=== PATIENT | male | born 1950 | race Caucasian/White ===

== ENCOUNTER 2017-04-26 17:17 | Emergency (ER) | payer MEDICARE ==
[~2017-04-26] VITALS: Ht 188 cm; Wt 136.0 kg
[2017-04-26 18:07] LABS: URINE BILIRUBIN - DIPSTICK NEGATIVE (NEGATIVE); URINE BLOOD DIPSTICK NEGATIVE (NEGATIVE); URINE CLARITY CLEAR; URINE COLOR YELLOW; URINE GLUCOSE - DIPSTICK NEGATIVE (NEGATIVE); URINE KETONE NEGATIVE (NEGATIVE); URINE LEUK ESTERASE NEGATIVE (NEGATIVE); URINE NITRITE - DIPSTICK NEGATIVE (Negative); URINE PROTEIN - DIPSTICK TRACE mg/dL (NEG-TRACE); URINE UROBILINOGEN - DIPSTICK 0.2 E.U./dL (0.2)
[2017-04-26 18:08] LABS: HEMATOCRIT 48.9 % (39.0-50.0); HEMOGLOBIN 16.6 g/dl (14.0-18.0); IMMATURE GRANULOCYTES 0.6 % (0.0-1.0); MEAN CORPUSCULAR HGB 31.9 pG CALC (26.0-32.0); MEAN CORPUSCULAR HGB CONC 33.9 g/L CALC (32.0-36.0); NEUT# 6.12 thou/uL (1.82-7.42); RED BLOOD COUNT 5.2 mill/uL (4.70-6.10); RED CELL DISTRI WIDTH 13.5 % (11.5-15.5)
[2017-04-26] MEDS ORDERED: LISINOP/HCTZ1 TA1 PO (18:13)
[2017-04-26] MEDS ORDERED: VERAPAMIL120 M1 PO (18:14)
[2017-04-26] MEDS ORDERED: HYDRALAZINE25 MG PO (18:14)
[2017-04-26] MEDS ORDERED: ZYLOPRIM300 MG PO (18:15)
[2017-04-26] MEDS ORDERED: TERAZOSIN1 MG PO (18:15)
[2017-04-26] MEDS ORDERED: FINASTERIDE5 MG PO (18:15)
[2017-04-26] MEDS ORDERED: PENTOXIFYLLI400 M1 PO (18:16)
[2017-04-26] MEDS ORDERED: FLAX SEED OIL1300 MG PO (18:17)
[2017-04-26] MEDS ORDERED: BAYER ASPIRIN325 MG PO (18:18)
[2017-04-26] MEDS ORDERED: VITAMIN D3400 UNI2 PO (18:19)
[2017-04-26] MEDS ORDERED: MAGNESIUM300 MG PO (18:19)
[2017-04-26] MEDS ORDERED: MULTI 50+ PO (18:19)
[2017-04-26 18:20] LABS: ALKALINE PHOSPHATASE 75 u/l (38-126); AMYLASE < 30 u/l (30-110); ANION GAP 14 (6-22 (CALC)); BILIRUBIN, TOTAL 0.7 mg/dL (0.0-1.4); BUN 24 mg/dL (8-23); BUN/CREATININE RATIO 19 (12-20 (CALC)); CALCIUM 9.2 mg/dL (8.4-10.2); CARBON DIOXIDE 28 mmol/l (22-30); CHLORIDE 100 mmol/l (95-108); CREATININE 1.3 mg/dL (0.7-1.3); GFR 55 ML/MIN (>=60 (CALC)); GFR FOR AFR.AMER. > 60 ML/MIN (>=60 (CALC)); GLUCOSE 96 mg/dL (82-115); LIPASE 37 u/l (23-300); POTASSIUM 3.9 mmol/l (3.5-5.1); SGOT/AST 20 u/l (19-48); SGPT/ALT 28 u/l (11-66); SODIUM 138 mmol/l (137-146); TOTAL PROTEIN 6.6 g/dL (6.3-8.2)
[2017-04-26] MEDS ORDERED: VITAMIN E400 UNI2 PO (18:20)
[2017-04-26] MEDS ORDERED: STOOL SOFTE1 PO (18:21)
[2017-04-26] MEDS ORDERED: CITRATE OF MEGNESIA (18:22)
[2017-04-26] MEDS ORDERED: B COMPLE2 PO (18:22)
[2017-04-26 18:32] LABS: MYOGLOBIN 61 ng/mL (0 - 121)
[2017-04-26] MEDS ORDERED: LORTAB 10-325 M1 TAB PO (19:53)
[2017-04-26] MEDS ORDERED: ZOFRAN ODT4 MG PO (19:53)
[2017-04-26 20:12] VITALS: BP 131/68
== END 2017-04-26 20:13 | disposition home or self-care (01) ==
LOC: ED 17:17
PROVIDERS: Emergency Medicine
DX: R10.32 Left lower quadrant pain (principal); K57.30 Diverticulosis of large intestine without perforation or abscess without bleeding; K80.20 Calculus of gallbladder without cholecystitis without obstruction; I48.91 Unspecified atrial fibrillation; Z79.82 Long term (current) use of aspirin; I10 Essential (primary) hypertension; N40.0 Benign prostatic hyperplasia without lower urinary tract symptoms; R11.0 Nausea; R14.0 Abdominal distension (gaseous)
CPT/HCPCS: Q9967

== ENCOUNTER 2017-06-12 19:32 | Emergency (ER) | payer MEDICARE ==
[~2017-06-12] VITALS: Ht 188 cm; Wt 136.4 kg
[~2017-06-12 19:32] MED LIST: B COMPLE2 PO; BAYER ASPIRIN325 MG PO; CITRATE OF MEGNESIA; FINASTERIDE5 MG PO; FLAX SEED OIL1300 MG PO; HYDRALAZINE25 MG PO; LISINOP/HCTZ1 TA1 PO; LORTAB 10-325 M1 TAB PO; MAGNESIUM300 MG PO; MULTI 50+ PO; PENTOXIFYLLI400 M1 PO; STOOL SOFTE1 PO; TERAZOSIN1 MG PO; VERAPAMIL120 M1 PO; VITAMIN D3400 UNI2 PO; VITAMIN E400 UNI2 PO; ZOFRAN ODT4 MG PO; ZYLOPRIM300 MG PO
[2017-06-12 21:07] LABS: HEMATOCRIT 50.5 % (39.0-50.0); HEMOGLOBIN 17.3 g/dl (14.0-18.0); IMMATURE GRANULOCYTES 0.5 % (0.0-1.0); MEAN CELL VOLUME 92.3 fL CALC (80.0-100.0); MEAN CORPUSCULAR HGB 31.6 pG CALC (26.0-32.0); MEAN CORPUSCULAR HGB CONC 34.3 g/L CALC (32.0-36.0); NEUT# 5.82 thou/uL (1.82-7.42); RED BLOOD COUNT 5.47 mill/uL (4.70-6.10); RED CELL DISTRI WIDTH 13.2 % (11.5-15.5)
[2017-06-12 21:14] LABS: ALBUMIN 4.3 g/dL (3.2-5.0); ALKALINE PHOSPHATASE 88 u/l (38-126); ANION GAP 15 (6-22 (CALC)); BILIRUBIN, TOTAL 1.1 mg/dL (0.0-1.4); BUN 26 mg/dL (8-23); BUN/CREATININE RATIO 18 (12-20 (CALC)); CALCIUM 9.1 mg/dL (8.4-10.2); CARBON DIOXIDE 28 mmol/l (22-30); CHLORIDE 100 mmol/l (95-108); CREATININE 1.4 mg/dL (0.7-1.3); GFR 50 ML/MIN (>=60 (CALC)); GFR FOR AFR.AMER. > 60 ML/MIN (>=60 (CALC)); GLUCOSE 92 mg/dL (82-115); POTASSIUM 4.1 mmol/l (3.5-5.1); SGOT/AST 44 u/l (19-48); SGPT/ALT 28 u/l (11-66); SODIUM 140 mmol/l (137-146); TOTAL PROTEIN 7.7 g/dL (6.3-8.2)
[2017-06-12 21:18] LABS: ACT PARTIAL THROMBO TIME 27.8 SECONDS (20.0-32.5); PROTHROMBIN TIME 11.2 SECONDS (9.0-12.5)
[2017-06-12 21:26] LABS: MYOGLOBIN 151 ng/mL (0 - 121)
[2017-06-12 22:38] LABS: URINE BILIRUBIN - DIPSTICK NEGATIVE (NEGATIVE); URINE BLOOD DIPSTICK NEGATIVE (NEGATIVE); URINE CLARITY CLEAR; URINE COLOR YELLOW; URINE GLUCOSE - DIPSTICK NEGATIVE (NEGATIVE); URINE KETONE TRACE mg/dL (NEGATIVE); URINE LEUK ESTERASE NEGATIVE (NEGATIVE); URINE NITRITE - DIPSTICK NEGATIVE (Negative); URINE PH 5.5 (4.5-8.0); URINE PROTEIN - DIPSTICK NEGATIVE (NEG-TRACE); URINE UROBILINOGEN - DIPSTICK 0.2 E.U./dL (0.2)
[2017-06-13 00:40] VITALS: BP 155/96
== END 2017-06-13 01:03 | disposition home or self-care (01) ==
LOC: ED 19:32
PROVIDERS: Emergency Medicine
DX: R42 Dizziness and giddiness (principal); I10 Essential (primary) hypertension; M10.9 Gout, unspecified; N40.0 Benign prostatic hyperplasia without lower urinary tract symptoms; R94.31 Abnormal electrocardiogram [ECG] [EKG]; Z59.1 Inadequate housing

== ENCOUNTER 2017-06-13 13:39 | Emergency (ER) | payer MEDICARE ==
[~2017-06-13] VITALS: Ht 188 cm; Wt 150.0 kg
[2017-06-13 15:20] LABS: HEMATOCRIT 48.9 % (39.0-50.0); HEMOGLOBIN 16.7 g/dl (14.0-18.0); IMMATURE GRANULOCYTES 0.4 % (0.0-1.0); MEAN CELL VOLUME 92.3 fL CALC (80.0-100.0); MEAN CORPUSCULAR HGB 31.5 pG CALC (26.0-32.0); MEAN CORPUSCULAR HGB CONC 34.2 g/L CALC (32.0-36.0); NEUT# 7.31 thou/uL (1.82-7.42); RED BLOOD COUNT 5.3 mill/uL (4.70-6.10); RED CELL DISTRI WIDTH 13.3 % (11.5-15.5)
[2017-06-13 15:35] VITALS: BP 153/85
[2017-06-13 15:37] LABS: ALKALINE PHOSPHATASE 74 u/l (38-126); ANION GAP 14 (6-22 (CALC)); BILIRUBIN, TOTAL 0.9 mg/dL (0.0-1.4); BUN 26 mg/dL (8-23); BUN/CREATININE RATIO 18 (12-20 (CALC)); CARBON DIOXIDE 27 mmol/l (22-30); CHLORIDE 103 mmol/l (95-108); CREATININE 1.4 mg/dL (0.7-1.3); GFR 50 ML/MIN (>=60 (CALC)); GFR FOR AFR.AMER. > 60 ML/MIN (>=60 (CALC)); GLUCOSE 84 mg/dL (82-115); POTASSIUM 3.6 mmol/l (3.5-5.1); SGOT/AST 32 u/l (19-48); SGPT/ALT 33 u/l (11-66); SODIUM 141 mmol/l (137-146)
[2017-06-13 15:46] LABS: MYOGLOBIN 331 ng/mL (0 - 121)
== END 2017-06-13 17:48 | disposition home or self-care (01) ==
LOC: ED 13:39
PROVIDERS: Emergency Medicine
DX: R53.1 Weakness (principal); I48.91 Unspecified atrial fibrillation; R42 Dizziness and giddiness; I10 Essential (primary) hypertension; M79.1 Myalgia

== ENCOUNTER 2018-11-22 14:16 | Emergency (ER) | payer MEDICARE ==
[~2018-11-22] VITALS: Ht 188 cm; Wt 142.0 kg
[~2018-11-22 14:16] MED LIST changes: -CELEBREX200 MG PO
[2018-11-22] MEDS ORDERED: CELEBREX200 MG PO ×2 (15:57→16:12)
[2018-11-22 16:34] VITALS: BP 87/59
== END 2018-11-22 16:35 | disposition home or self-care (01) ==
LOC: ED 14:16
DX: S83.91XA Sprain of unspecified site of right knee, initial encounter (principal); M17.11 Unilateral primary osteoarthritis, right knee; I69.354 Hemiplegia and hemiparesis following cerebral infarction affecting left non-dominant side; I10 Essential (primary) hypertension; X50.0XXA Overexertion from strenuous movement or load, initial encounter; Y93.89 Activity, other specified; Y92.003 Bedroom of unspecified non-institutional (private) residence as the place of occurrence of the external cause; R53.83 Other fatigue; R26.89 Other abnormalities of gait and mobility; M54.16 Radiculopathy, lumbar region; Z91.81 History of falling

== ENCOUNTER → 2018-11-22 | Outpatient (REF) | payer MEDICARE ==
[~2018-11-22] MED LIST changes: +CELEBREX200 MG PO
[2018-11-22 14:45] LABS: HEMATOCRIT 48.1 % (39.0-50.0); HEMOGLOBIN 15.7 g/dl (14.0-18.0); IMMATURE GRANULOCYTES 0.5 % (0.0-5.0); MEAN CELL VOLUME 95.8 fL CALC (80.0-100.0); MEAN CORPUSCULAR HGB 31.3 pG CALC (26.0-32.0); MEAN CORPUSCULAR HGB CONC 32.6 g/L CALC (32.0-36.0); NEUT# 3.8 thou/uL (1.82-7.42); RED BLOOD COUNT 5.02 mill/uL (4.70-6.10); RED CELL DISTRI WIDTH 14.6 % (11.5-15.5)
[2018-11-22 15:08] LABS: ALBUMIN 3.5 g/dL (3.2-5.0); BILIRUBIN, TOTAL 0.9 mg/dL (0.0-1.4); CREATININE 2.2 mg/dL (0.7-1.3)
[2018-11-22 15:38] LABS: TSH, 3RD GENERATION 2.12 uIU/mL (0.47 - 4.68)
== END | disposition home or self-care (01) ==
LOC: LAB 13:57
PROVIDERS: ATTEND Family Medicine
DX: R53.83 Other fatigue (principal); R26.89 Other abnormalities of gait and mobility; M54.16 Radiculopathy, lumbar region; Z91.81 History of falling

== ENCOUNTER 2019-01-05 20:11 | Observation (INO) | payer MEDICARE ==
[~2019-01-05] VITALS: Ht 190.5 cm; Wt 120.9 kg
[~2019-01-05 20:11] MED LIST changes: +CELEBREX200 MG PO
[2019-01-05 20:43] LABS: HEMOGLOBIN 14.9 g/dl (14.0-18.0); IMMATURE GRANULOCYTES 0.6 % (0.0-5.0); MEAN CELL VOLUME 98.1 fL CALC (80.0-100.0); MEAN CORPUSCULAR HGB 31.1 pG CALC (26.0-32.0); MEAN CORPUSCULAR HGB CONC 31.7 g/L CALC (32.0-36.0); NEUT# 4.54 thou/uL (1.82-7.42); RED BLOOD COUNT 4.79 mill/uL (4.70-6.10); RED CELL DISTRI WIDTH 14.6 % (11.5-15.5)
[2019-01-05] MEDS ORDERED: ELIQUIS5 MG PO (20:55)
[2019-01-05] MEDS ORDERED: TAMSULOSIN0.4 MG PO (20:56)
[2019-01-05] MEDS ORDERED: HYDROCHLOROT25 MG PO (20:58)
[2019-01-05] MEDS ORDERED: ATROVENT H17 MCG/ACT IN (20:59)
[2019-01-05 21:04] LABS: ALBUMIN 3.8 g/dL (3.2-5.0); ALKALINE PHOSPHATASE 86 u/l (38-126); ANION GAP 15 (6-22 (CALC)); BILIRUBIN, TOTAL 0.6 mg/dL (0.0-1.4); BUN 50 mg/dL (8-23); BUN/CREATININE RATIO 20 (12-20 (CALC)); CARBON DIOXIDE 27 mmol/l (22-30); CHLORIDE 103 mmol/l (95-108); CREATININE 2.5 mg/dL (0.7-1.3); GFR 26 ML/MIN (>=60 (CALC)); GFR FOR AFR.AMER. 31 ML/MIN (>=60 (CALC)); POTASSIUM 4.3 mmol/l (3.5-5.1); SGOT/AST 18 u/l (19-48); SODIUM 141 mmol/l (137-146); TOTAL PROTEIN 6.3 g/dL (6.3-8.2)
[2019-01-05 21:06] LABS: ACT PARTIAL THROMBO TIME 32.8 SECONDS (20.0-32.5); PROTHROMBIN TIME 10.4 SECONDS (9.0-12.5)
[2019-01-05 21:16] LABS: MYOGLOBIN 108 ng/mL (0 - 121)
[2019-01-05 23:04] LABS: URINE BILIRUBIN - DIPSTICK NEGATIVE (NEGATIVE); URINE BLOOD DIPSTICK NEGATIVE (NEGATIVE); URINE COLOR YELLOW; URINE GLUCOSE - DIPSTICK NEGATIVE (NEGATIVE); URINE KETONE NEGATIVE (NEGATIVE); URINE LEUK ESTERASE NEGATIVE (NEGATIVE); URINE NITRITE - DIPSTICK NEGATIVE (Negative); URINE PH 5.5 (4.5-8.0); URINE PROTEIN - DIPSTICK TRACE mg/dL (NEG-TRACE); URINE SPECIFIC GRAVITY 1.025
[2019-01-06 00:48] VITALS: BP 156/94
[2019-01-06 04:48] VITALS: BP 163/97
[2019-01-06 06:17] LABS: ALBUMIN 3.4 g/dL (3.2-5.0); BILIRUBIN, TOTAL 0.6 mg/dL (0.0-1.4); CREATININE 2.2 mg/dL (0.7-1.3); POTASSIUM 4.5 mmol/l (3.5-5.1); TOTAL PROTEIN 5.7 g/dL (6.3-8.2)
[2019-01-06 09:38] VITALS: BP 134/74
[2019-01-06 10:50] VITALS: BP 178/88
[2019-01-06] MEDS ORDERED: LOPRESSOR50 M2 PO (14:25)
[2019-01-06] MEDS ORDERED: CARDIZEM CD120 MG PO (14:25)
== END 2019-01-06 16:05 | disposition home health service (06) ==
LOC: ED 20:11 → ED-I 23:22 → ED 23:37 → MS2 23:37
PROVIDERS: Emergency Medicine; ADMIT Internal Medicine Nephrology; ATTEND Internal Medicine Nephrology
DX: G45.9 Transient cerebral ischemic attack, unspecified (principal); N17.9 Acute kidney failure, unspecified; I69.954 Hemiplegia and hemiparesis following unspecified cerebrovascular disease affecting left non-dominant side; I69.993 Ataxia following unspecified cerebrovascular disease; I12.9 Hypertensive chronic kidney disease with stage 1 through stage 4 chronic kidney disease, or unspecified chronic kidney disease; N18.3 Chronic kidney disease, stage 3 (moderate); I48.2 Chronic atrial fibrillation; G62.1 Alcoholic polyneuropathy; M10.9 Gout, unspecified; I73.9 Peripheral vascular disease, unspecified; F17.210 Nicotine dependence, cigarettes, uncomplicated; Z79.01 Long term (current) use of anticoagulants

== ENCOUNTER 2019-01-19 17:00 | Inpatient (IN) | payer MEDICARE ==
[~2019-01-19] VITALS: Ht 190.5 cm; Wt 124.0 kg
[~2019-01-19 17:00] MED LIST changes: +ATROVENT H17 MCG/ACT IN; +CARDIZEM CD120 MG PO; +ELIQUIS5 MG PO; +HYDROCHLOROT25 MG PO; +LOPRESSOR50 M2 PO; +TAMSULOSIN0.4 MG PO
[2019-01-19 18:01] LABS: HEMATOCRIT 42.5 % (39.0-50.0); HEMOGLOBIN 13.8 g/dl (14.0-18.0); IMMATURE GRANULOCYTES 0.7 % (0.0-5.0); MEAN CELL VOLUME 97.5 fL CALC (80.0-100.0); MEAN CORPUSCULAR HGB 31.7 pG CALC (26.0-32.0); MEAN CORPUSCULAR HGB CONC 32.5 g/L CALC (32.0-36.0); NEUT# 3.6 thou/uL (1.82-7.42); RED BLOOD COUNT 4.36 mill/uL (4.70-6.10); RED CELL DISTRI WIDTH 14.6 % (11.5-15.5)
[2019-01-19 18:24] LABS: ALBUMIN 3.1 g/dL (3.2-5.0); ALKALINE PHOSPHATASE 70 u/l (38-126); ANION GAP 11 (6-22 (CALC)); BILIRUBIN, TOTAL 0.5 mg/dL (0.0-1.4); BUN 25 mg/dL (8-23); BUN/CREATININE RATIO 17 (12-20 (CALC)); CARBON DIOXIDE 25 mmol/l (22-30); CHLORIDE 107 mmol/l (95-108); CREATININE 1.5 mg/dL (0.7-1.3); GFR 46 ML/MIN (>=60 (CALC)); GFR FOR AFR.AMER. 56 ML/MIN (>=60 (CALC)); SGOT/AST 13 u/l (19-48); SODIUM 138 mmol/l (137-146); TOTAL PROTEIN 5.4 g/dL (6.3-8.2)
[2019-01-19 20:18] VITALS: BP 137/85
[2019-01-19] MEDS ORDERED: BACLOFEN10 MG PO (20:28)
[2019-01-19] MEDS ORDERED: TOPAMAX25 MG PO (20:28)
[2019-01-19] MEDS ORDERED: PERCOCET1 TA4 PO (20:29)
[2019-01-19] MEDS ORDERED: CYMBALTA60 MG PO (20:29)
[2019-01-19] MEDS ORDERED: ALLOPURINOL300 MG PO (20:39)
[2019-01-19 22:15] VITALS: BP 125/69
[2019-01-20] VITALS (14 sets, daily range): BP systolic 125–164; BP diastolic 65–88
[2019-01-20 01:39] LABS: URINE BILIRUBIN - DIPSTICK NEGATIVE (NEGATIVE); URINE BLOOD DIPSTICK NEGATIVE (NEGATIVE); URINE COLOR YELLOW; URINE GLUCOSE - DIPSTICK NEGATIVE (NEGATIVE); URINE KETONE NEGATIVE (NEGATIVE); URINE LEUK ESTERASE NEGATIVE (NEGATIVE); URINE NITRITE - DIPSTICK NEGATIVE (Negative); URINE PH 5.5 (4.5-8.0); URINE PROTEIN - DIPSTICK NEGATIVE (NEG-TRACE); URINE SPECIFIC GRAVITY 1.025; URINE UROBILINOGEN - DIPSTICK 0.2 E.U./dL (0.2)
[2019-01-20 01:52] LABS: BARBITURATES NEGATIVE (NEGATIVE); COCAINE NEGATIVE (NEGATIVE); METHADONE NEGATIVE (NEGATIVE); OXCYCODONE POSITIVE (NEGATIVE); TETRAHYDROCANNABIONOL NEGATIVE (NEGATIVE); TRICYLIC ANTIDEPRESSANTS POSITIVE (NEGATIVE)
[2019-01-20 06:14] LABS: HEMATOCRIT 45.7 % (39.0-50.0); HEMOGLOBIN 14.8 g/dl (14.0-18.0); MEAN CELL VOLUME 98.3 fL CALC (80.0-100.0); MEAN CORPUSCULAR HGB 31.8 pG CALC (26.0-32.0); MEAN CORPUSCULAR HGB CONC 32.4 g/L CALC (32.0-36.0); RED BLOOD COUNT 4.65 mill/uL (4.70-6.10); RED CELL DISTRI WIDTH 14.6 % (11.5-15.5)
[2019-01-20 06:35] LABS: CHOLESTEROL HDL RATIO 5.6 (<4.4 (CALC)); CREATININE 1.5 mg/dL (0.7-1.3); MAGNESIUM 2.2 mg/dL (1.6-2.3); POTASSIUM 4.2 mmol/l (3.5-5.1)
[2019-01-21] VITALS (15 sets, daily range): BP systolic 138–198; BP diastolic 63–108
[2019-01-22] VITALS (13 sets, daily range): BP systolic 145–194; BP diastolic 76–102
[2019-01-22 05:24] LABS: HEMATOCRIT 45.3 % (39.0-50.0); HEMOGLOBIN 14.8 g/dl (14.0-18.0); IMMATURE GRANULOCYTES 0.5 % (0.0-5.0); MEAN CELL VOLUME 96.8 fL CALC (80.0-100.0); MEAN CORPUSCULAR HGB 31.6 pG CALC (26.0-32.0); MEAN CORPUSCULAR HGB CONC 32.7 g/L CALC (32.0-36.0); NEUT# 4.34 thou/uL (1.82-7.42); RED BLOOD COUNT 4.68 mill/uL (4.70-6.10); RED CELL DISTRI WIDTH 14.6 % (11.5-15.5)
[2019-01-22 05:43] LABS: ALBUMIN 3.2 g/dL (3.2-5.0); ALKALINE PHOSPHATASE 76 u/l (38-126); ANION GAP 11 (6-22 (CALC)); BILIRUBIN, TOTAL 0.4 mg/dL (0.0-1.4); BUN 21 mg/dL (8-23); BUN/CREATININE RATIO 17 (12-20 (CALC)); CARBON DIOXIDE 26 mmol/l (22-30); CHLORIDE 107 mmol/l (95-108); CREATININE 1.2 mg/dL (0.7-1.3); GFR 60 ML/MIN (>=60 (CALC)); GFR FOR AFR.AMER. > 60 ML/MIN (>=60 (CALC)); LIPASE 40 u/l (23-300); POTASSIUM 4.2 mmol/l (3.5-5.1); SGOT/AST 12 u/l (19-48); SODIUM 139 mmol/l (137-146); TOTAL PROTEIN 5.5 g/dL (6.3-8.2)
[2019-01-22 05:53] LABS: AMYLASE < 30 u/l (30-110)
[2019-01-23] VITALS (9 sets, daily range): BP systolic 150–196; BP diastolic 68–104
[2019-01-23 05:27] LABS: HEMATOCRIT 47.9 % (39.0-50.0); HEMOGLOBIN 15.7 g/dl (14.0-18.0); IMMATURE GRANULOCYTES 0.4 % (0.0-5.0); MEAN CELL VOLUME 96.6 fL CALC (80.0-100.0); MEAN CORPUSCULAR HGB 31.7 pG CALC (26.0-32.0); MEAN CORPUSCULAR HGB CONC 32.8 g/L CALC (32.0-36.0); NEUT# 5.01 thou/uL (1.82-7.42); RED BLOOD COUNT 4.96 mill/uL (4.70-6.10); RED CELL DISTRI WIDTH 14.5 % (11.5-15.5)
[2019-01-23 05:39] LABS: ALBUMIN 3.5 g/dL (3.2-5.0); ALKALINE PHOSPHATASE 90 u/l (38-126); ANION GAP 13 (6-22 (CALC)); BILIRUBIN, TOTAL 0.7 mg/dL (0.0-1.4); BUN 19 mg/dL (8-23); BUN/CREATININE RATIO 18 (12-20 (CALC)); CARBON DIOXIDE 25 mmol/l (22-30); CHLORIDE 104 mmol/l (95-108); CREATININE 1.1 mg/dL (0.7-1.3); GFR > 60 ML/MIN (>=60 (CALC)); GFR FOR AFR.AMER. > 60 ML/MIN (>=60 (CALC)); MAGNESIUM 2.1 mg/dL (1.6-2.3); POTASSIUM 4.3 mmol/l (3.5-5.1); SGOT/AST 17 u/l (19-48); SODIUM 138 mmol/l (137-146)
[2019-01-24] VITALS (7 sets, daily range): BP systolic 98–155; BP diastolic 60–91
[2019-01-24 05:49] LABS: HEMOGLOBIN 14.9 g/dl (14.0-18.0); IMMATURE GRANULOCYTES 0.5 % (0.0-5.0); MEAN CELL VOLUME 97.5 fL CALC (80.0-100.0); MEAN CORPUSCULAR HGB 31.6 pG CALC (26.0-32.0); MEAN CORPUSCULAR HGB CONC 32.4 g/L CALC (32.0-36.0); NEUT# 4.94 thou/uL (1.82-7.42); RED BLOOD COUNT 4.72 mill/uL (4.70-6.10); RED CELL DISTRI WIDTH 14.5 % (11.5-15.5)
[2019-01-24 06:03] LABS: ALBUMIN 3.2 g/dL (3.2-5.0); ALKALINE PHOSPHATASE 71 u/l (38-126); ANION GAP 12 (6-22 (CALC)); BILIRUBIN, TOTAL 0.6 mg/dL (0.0-1.4); BUN 22 mg/dL (8-23); BUN/CREATININE RATIO 20 (12-20 (CALC)); CARBON DIOXIDE 26 mmol/l (22-30); CHLORIDE 104 mmol/l (95-108); CREATININE 1.1 mg/dL (0.7-1.3); GFR > 60 ML/MIN (>=60 (CALC)); GFR FOR AFR.AMER. > 60 ML/MIN (>=60 (CALC)); MAGNESIUM 2.2 mg/dL (1.6-2.3); POTASSIUM 4.3 mmol/l (3.5-5.1); SGOT/AST 15 u/l (19-48); SODIUM 138 mmol/l (137-146); TOTAL PROTEIN 5.5 g/dL (6.3-8.2)
[2019-01-25 04:32] VITALS: BP 187/99
[2019-01-25 05:13] VITALS: BP 119/81
[2019-01-25 09:46] VITALS: BP 161/86
[2019-01-25 11:38] VITALS: BP 160/94
[2019-01-25 16:03] VITALS: BP 93/84
[2019-01-25 20:11] VITALS: BP 173/89
[2019-01-26] VITALS (8 sets, daily range): BP systolic 131–170; BP diastolic 65–79
[2019-01-26 06:03] LABS: HEMATOCRIT 42.9 % (39.0-50.0); HEMOGLOBIN 14.2 g/dl (14.0-18.0); IMMATURE GRANULOCYTES 0.5 % (0.0-5.0); MEAN CELL VOLUME 96.4 fL CALC (80.0-100.0); MEAN CORPUSCULAR HGB 31.9 pG CALC (26.0-32.0); MEAN CORPUSCULAR HGB CONC 33.1 g/L CALC (32.0-36.0); NEUT# 5.73 thou/uL (1.82-7.42); RED BLOOD COUNT 4.45 mill/uL (4.70-6.10); RED CELL DISTRI WIDTH 14.4 % (11.5-15.5)
[2019-01-26 06:36] LABS: ALKALINE PHOSPHATASE 75 u/l (38-126); ANION GAP 11 (6-22 (CALC)); BILIRUBIN, TOTAL 0.5 mg/dL (0.0-1.4); BUN 19 mg/dL (8-23); BUN/CREATININE RATIO 17 (12-20 (CALC)); CARBON DIOXIDE 27 mmol/l (22-30); CHLORIDE 106 mmol/l (95-108); CREATININE 1.1 mg/dL (0.7-1.3); GFR > 60 ML/MIN (>=60 (CALC)); GFR FOR AFR.AMER. > 60 ML/MIN (>=60 (CALC)); MAGNESIUM 2.3 mg/dL (1.6-2.3); POTASSIUM 3.9 mmol/l (3.5-5.1); SGOT/AST 13 u/l (19-48); SODIUM 139 mmol/l (137-146); TOTAL PROTEIN 5.3 g/dL (6.3-8.2)
[2019-01-26] MEDS ORDERED: LOSARTAN POT50 MG PO (14:40)
[2019-01-26] MEDS ORDERED: ALLOPURINOL100 MG PO (14:41)
[2019-01-26] MEDS ORDERED: PERCOCET1 TA4 PO (14:43)
[2019-01-26] MEDS ORDERED: DOXYCYC MONO100 M2 PO (15:03)
== END 2019-01-26 21:30 | DRG 917 ==
LOC: ED 17:00 → ED-I 18:35 → ED 19:00 → ICU 19:01 → MS2 01-22 10:53
PROVIDERS: Emergency Medicine; Internal Medicine Nephrology; ADMIT Internal Medicine; ATTEND Internal Medicine
PROC: 0T9B70Z Drainage of Bladder with Drainage Device, Via Natural or Artificial Opening (ICD-10-PCS; principal; 2019-01-24)
DX: T46.1X1A Poisoning by calcium-channel blockers, accidental (unintentional), initial encounter (principal); J18.9 Pneumonia, unspecified organism; I69.954 Hemiplegia and hemiparesis following unspecified cerebrovascular disease affecting left non-dominant side; J44.0 Chronic obstructive pulmonary disease with (acute) lower respiratory infection; R00.1 Bradycardia, unspecified; I95.2 Hypotension due to drugs; I12.9 Hypertensive chronic kidney disease with stage 1 through stage 4 chronic kidney disease, or unspecified chronic kidney disease; N18.3 Chronic kidney disease, stage 3 (moderate); I48.0 Paroxysmal atrial fibrillation; I73.9 Peripheral vascular disease, unspecified; M62.838 Other muscle spasm; G89.4 Chronic pain syndrome; M10.9 Gout, unspecified; F41.9 Anxiety disorder, unspecified; F32.9 Major depressive disorder, single episode, unspecified; F17.200 Nicotine dependence, unspecified, uncomplicated; Y92.009 Unspecified place in unspecified non-institutional (private) residence as the place of occurrence of the external cause; Z79.01 Long term (current) use of anticoagulants; Z60.2 Problems related to living alone; N40.1 Benign prostatic hyperplasia with lower urinary tract symptoms; R33.8 Other retention of urine; K59.00 Constipation, unspecified

== ENCOUNTER 2019-04-11 19:35 | Emergency (ER) | payer MEDICARE, OTHER ==
[~2019-04-11] VITALS: Ht 190.5 cm; Wt 120.0 kg
[~2019-04-11 19:35] MED LIST changes: +ALLOPURINOL100 MG PO; +ALLOPURINOL300 MG PO; +BACLOFEN10 MG PO; +CYMBALTA60 MG PO; +DOXYCYC MONO100 M2 PO; +LOSARTAN POT50 MG PO; +PERCOCET1 TA4 PO; +TOPAMAX25 MG PO
[2019-04-11] MEDS ORDERED: IBUPROFEN600 MG PO (21:39)
[2019-04-11] MEDS ORDERED: FUROSEMIDE40 MG PO (21:48)
[2019-04-11] MEDS ORDERED: CYMBALTA60 MG PO (21:48)
[2019-04-11] MEDS ORDERED: KLOR-CON 1010 MEQ PO (21:49)
[2019-04-11] MEDS ORDERED: ROPINIROLE0.25 MG PO (21:50)
[2019-04-11] MEDS ORDERED: COLACE100 MG PO (21:51)
[2019-04-11] MEDS ORDERED: XARELTO20 MG PO (21:51)
[2019-04-11] MEDS ORDERED: POLYETH GLYC3350 NF PO (21:52)
[2019-04-11 23:30] VITALS: BP 115/61
== END 2019-04-11 23:30 ==
LOC: ED 19:35
DX: S72.424A Nondisplaced fracture of lateral condyle of right femur, initial encounter for closed fracture (principal); I10 Essential (primary) hypertension; F17.200 Nicotine dependence, unspecified, uncomplicated; W18.30XA Fall on same level, unspecified, initial encounter; Y92.091 Bathroom in other non-institutional residence as the place of occurrence of the external cause; Z91.81 History of falling; Z86.73 Personal history of transient ischemic attack (TIA), and cerebral infarction without residual deficits
CPT/HCPCS: L1830